=== PATIENT | male | born 1950 | race Caucasian/White ===

== ENCOUNTER 2017-02-25 06:06 | Emergency (ER) | payer OTHER ==
[2017-02-25] MEDS ORDERED: NS 1,000 ML IV ONE (06:14)
[2017-02-25] MEDS ORDERED: DIAZEPAM 10 MG/2 ML SYR IVP ONE (06:15)
[2017-02-25] MEDS ORDERED: MECLIZINE HCL 25 MG TAB PO ONE (06:15)
--- NOTE | 2017-02-25 06:18 | EDPHY ---
H & P Source: Patient, EMS HPI/ROS: HPI CHIEF COMPLAINT: Dizziness, nausea HISTORY OF PRESENT ILLNESS: This patient is 67-year-old male, he presents emergency room by ambulance for acute onset of dizziness that woke him from sleep around 4:00 a.m.. Associated nausea with this. States he is more dizzy when he opens his eyes. Denies double vision. He denies severe headache. He tells me that he gets worsening dizziness when he opens his eyes and moves his head. Not in any particular position. Denies double vision but the symptoms were acute in onset. He has never had this before. No history of cardiac disease or vascular disease. No history of stroke. Denies focal weakness numbness or tingling. Denies ringing in his ears. Past Medical History: Right bundle-branch block otherwise no other major medical problems Past Surgical History: Foot surgery Social History: Denies daily use of drugs alcohol tobacco products. Family History: Noncontributory ROS REVIEW OF SYSTEMS: A comprehensive 10 point review of systems is otherwise negative aside from elements mentioned in the history of present illness. Exam Constitutional nontoxic, triage nursing summary reviewed, vital signs reviewed , awake/alert. Eyes normal conjunctivae and sclera, EOMI, PERRLA. HENT normal inspection, atraumatic, moist mucus membranes, no epistaxis, neck supple/ no meningismus, no raccoon eyes. Respiratory clear to auscultation bilaterally, normal breath sounds, no respiratory distress, no wheezing. Cardiovascular rate normal, regular rhythm, no murmur, no edema, distal pulses normal. Gastrointestinal soft, non-tender, no rebound, no guarding, normal bowel sounds, no distension, no pulsatile mass. Genitourinary no CVA tenderness. Musculoskeletal no midline vertebral tenderness, full range of motion, no calf swelling, no tenderness of extremities, no meningismus, good pulses, neurovascularly intact. Skin pink, warm, & dry, no rash, skin atraumatic. Neurologic awake, alert and oriented x 3, AAOx3, moves all 4 extremities equally, motor intact, sensory intact, CN II-XII intact, normal cerebellar, normal vision, normal speech. Psychiatric normal mood/affect. Heme/Lymph/Immune no lymphadenopathy. Differential Diagnosis: Includes but is not limited to in a particular order benign positional vertigo, Meniere's disease,, posterior circulation stroke causing dizziness sudden onset, electrolyte disturbance, dehydration, cardiac disease Medical Decision Making: Plan for this patient IV establishment, IV fluid bolus , p.o. meclizine, 2.5 mg IV Valium, check basic blood work EKG, troponin, CT angiogram head and neck. Re-evaluation: 0625AM: EKG interpretation by me on record in [employer] system. Impression time of EKG 6:22 a.m.. Sinus rhythm 57. First-degree AV block with appear interval 240. Right bundle-branch block. Left anterior fascicular block present. Otherwise no acute ST elevation or significant ST depression. No old EKG to compare this to. Patient has a known right bundle branch block. 0640AM: Patient be signed over to Dr. Vicente at 7:00 a.m. shift change. Pending workup for acute onset of dizziness. Patient's blood work is pending at this time. CT angiogram head and neck are pending. He has been medicated. Dr. Garcia to follow up these imaging and lab results and re-evaluation and appropriate disposition. ED x-ray chest one view: Negative for acute cardiopulmonary disease. (Med[facility] Vital) Constitutional: Initial Vital Signs O2 Sat (%) 98 02/25/17 06:14 O2 Delivery Mode Room Air O2 (L/minute) 2 Allergies/Adverse Reactions: No Known Allergies Allergy (Unverified 02/25/17 06:16) Home Medications: Medication Instructions Recorded Meclizine HCl [Meclizine HCl 25 mg 25 mg PO BID PRN #14 tab 02/25/17 (RX,OTC)] Medical Decision Making - Diagnostics EKG Interpretation: EKG time is 6:22 a.m.: EKG shows a sinus rhythm with ventricular rate of 57. There is a right bundle branch block and left anterior fascicular block. 1st degree AV block also noted. Borderline biphasic T-waves in V2 and V3. I do not think this represents a Wellens syndrome. No ST, T-wave changes indicative of acute ischemic or injury pattern. Interpreted by me. (Chuy Garcia) Imaging Results: CT angiogram of the head and neck: Negative vascular study. No other significant pathology. Results were discussed with staff radiologist Dr. Haroldo Gandhi. (Chuy Garcia) ED Course/Re-evaluation: I took over care of this patient at 7:00 a.m.. The patient was signed out to me with complaint of acute onset of vertigo which woke him up. The vertigo is made worse with any head movements or body movements. The patient also complains of generalized weakness. CT angiogram of the brain and neck have been ordered and are pending at this time. The patient has been given both Valium and meclizine with some relief of his symptoms. 7:40 a.m., patient evaluated by myself. Results of his CT scans were discussed with him and his . The differential diagnosis was reviewed. He is now feeling significantly better. He reports resolution of his vertigo. He denies any chest pain. No shortness of breath. I discussed admission for observation. He does not want to do this. He feels comfortable going home and is now requesting discharge. He was able to get out of bed on his own power and ambulate without difficulty to the bathroom. Plan will be to prescribe him meclizine for suppression of benign positional vertigo. He will follow up with his primary care physician in 1-2 days for re-evaluation. I discussed consideration of possible labyrinthitis/vestibular neuritis and the need for steroids. However, at this time I will prescribe him meclizine only and if further management is required this can be done through his primary care physician. Return to emergency department precautions were discussed with the 2 of them. All of their questions were answered. He was discharged in good condition. (Chuy Garcia) - Data Points Laboratory Results: Laboratory Results 02/25/17 06:30 02/25/17 06:30 02/25/17 02/25/17 02/25/17 06:30 06:30 06:30 WBC 7.79 10^3/uL 10^3/uL (3.80-9.50) RBC 4.90 10^6/uL 10^6/uL (4.40-6.38) Hgb 14.4 g/dL g/dL (13.7-17.5) Hct 41.8 % % (40.0-51.0) MCV 85.3 fL fL (81.5-99.8) MCH 29.4 pg pg (27.9-34.1) MCHC 34.4 g/dL g/dL (32.4-36.7) RDW 13.1 % % (11.5-15.2) Plt Count 161 10^3/uL 10^3/uL (150-400) MPV 10.5 fL fL (8.7-11.7) Neut % (Auto) 85.5 % H % (39.3-74.2) Lymph % (Auto) 8.7 % L % (15.0-45.0) [place] % (Auto) 3.6 % L % (4.5-13.0) Eos % (Auto) 1.0 % % (0.6-7.6) Baso % (Auto) 0.8 % % (0.3-1.7) Nucleat RBC Rel Count 0.0 % % (0.0-0.2) Absolute Neuts (auto) 6.66 10^3/uL H 10^3/uL (1.70-6.50) Absolute Lymphs (auto) 0.68 10^3/uL L 10^3/uL (1.00-3.00) Absolute Monos (auto) 0.28 10^3/uL L 10^3/uL (0.30-0.80) Absolute Eos (auto) 0.08 10^3/uL 10^3/uL (0.03-0.40) Absolute Basos (auto) 0.06 10^3/uL 10^3/uL (0.02-0.10) Absolute Nucleated RBC 0.00 10^3/uL 10^3/uL (0-0.01) Immature Gran % 0.4 % % (0.0-1.1) Immature Gran # 0.03 10^3/uL 10^3/uL (0.00-0.10) PT 12.8 SEC SEC (12.0-15.0) INR 0.97 (0.83-1.16) APTT 22.4 SEC L SEC (23.0-38.0) Sodium 144 mEq/L mEq/L (134-144) Potassium 4.6 mEq/L mEq/L (3.5-5.2) Chloride 111 mEq/L H mEq/L (97-110) Carbon Dioxide 22 mEq/l mEq/l (22-31) Anion Gap 11 mEq/L mEq/L (8-16) BUN 23 mg/dL mg/dL (7-23) Creatinine 1.1 mg/dL mg/dL (0.7-1.3) Estimated GFR > 60 Glucose 142 mg/dL H mg/dL (70-100) Calcium 8.5 mg/dL mg/dL (8.5-10.4) Magnesium 1.9 mg/dL mg/dL (1.6-2.3) Total Bilirubin 0.7 mg/dL mg/dL (0.1-1.4) Conjugated Bilirubin 0.1 mg/dL mg/dL (0.0-0.5) Unconjugated Bilirubin 0.6 mg/dL mg/dL (0.0-1.1) AST 22 IU/L IU/L (17-59) ALT 31 IU/L IU/L (21-72) Alkaline Phosphatase 39 IU/L IU/L (38-126) Creatine Kinase 104 IU/L IU/L (0-224) CK-MB (CK-2) Fraction 1.19 ng/mL ng/mL (0-3.19) Troponin I < 0.012 ng/mL ng/mL (0-0.034) NT-Pro-B Natriuret Pep 57 pg/mL pg/mL (0-125) Total Protein 6.2 g/dL L g/dL (6.3-8.2) Albumin 3.7 g/dL g/dL (3.5-5.0) Medications Given: Discontinued Medications Diazepam (Valium Injection) 2.5 mg IVP EDNOW ONE Stop: 02/25/17 06:16 Last Admin: 02/25/17 06:32 Dose: 2.5 mg Sodium Chloride (Ns) 1,000 mls @ 0 mls/hr IV ONCE ONE; Wide Open PRN Reason: Protocol Stop: 02/25/17 06:15 Last Admin: 02/25/17 06:33 Dose: 1,000 mls Meclizine HCl (Meclizine Hcl) 25 mg PO EDNOW ONE Stop: 02/25/17 06:16 Last Admin: 02/25/17 06:32 Dose: 25 mg Departure - Departure Disposition: Home, Routine, Self-Care Clinical Impression: Vertigo Condition: Good Instructions: Vertigo (ED) Additional Instructions: Read and follow provided instructions. Follow-up with your primary care physician in 1-2 days for re-evaluation and further management as needed. Take medication as prescribed. This is meclizine. Can make you mildly drowsy. Return to the emergency department for worsening vertigo, headache, loss of sensation or weakness in your extremities, chest pain, shortness of breath or other serious concerns. Referrals: Patient,NotPresent [Unknown] - As per Instructions Prescriptions: Meclizine HCl [Meclizine HCl 25 mg (RX,OTC)] 25 mg PO BID PRN #14 tab PRN Reason: Dizziness
[2017-02-25 06:20] VITALS: RESP 18
--- NOTE | 2017-02-25 06:24 | CPEKG ---
Heart Rate: 57 RR Interval: 1053 P-R Interval: 240 QRSD Interval: 140 QT Interval: 488 QTC Interval: 476 P [place]: 0 QRS [place]amy: -71 T Wave [place]: -14 EKG Severity - ABNORMAL ECG - EKG Impression: SINUS RHYTHM EKG Impression: FIRST DEGREE AV BLOCK EKG Impression: RBBB AND LAFB Electronically Signed By: Chuy Garcia 25-Feb-2017 10:39:20
[2017-02-25 06:41] LABS: % IMMATURE GRANULYOCYTES 0.4 % (0.0-1.1); ABSOLUTE IMMATURE GRANULOCYTES 0.03 10^3/uL (0.00-0.10); ADD DIFF? NO; ADD MORPH? NO; ADD SCAN? NO; ATYPICAL LYMPHOCYTE FLAG 0 (0-99); FRAGMENT RBC FLAG 0 (0-99); HEMATOCRIT 41.8 % (40.0-51.0); HEMOGLOBIN 14.4 g/dL (13.7-17.5); LEFT SHIFT FLG 0 (0-99); LIPEMIA HEMOLYSIS FLAG 90 (0-99); MEAN CELL HEMOGLOBIN 29.4 pg (27.9-34.1); MEAN CELL HEMOGLOBIN CONCENTR. 34.4 g/dL (32.4-36.7); MEAN CELL VOLUME 85.3 fL (81.5-99.8); MEAN PLATELET VOLUME 10.5 fL (8.7-11.7); PLATELET CLUMPS FLAG 0 (0-99); PLATELET COUNT 161 10^3/uL (150-400); RED CELL DISTRIBUTION WIDTH 13.1 % (11.5-15.2)
[2017-02-25] MEDS ORDERED: IOPAMIDOL (ISOVUE 370) 100 ML BTL IV ONE (06:43)
[2017-02-25 06:51] LABS: ALANINE AMINOTRANSFERASE 31 IU/L (21-72); ALBUMIN 3.7 g/dL (3.5-5.0); ALKALINE PHOSPHATASE 39 IU/L (38-126); ANION GAP 11 mEq/L (8-16); ASPARTATE AMINOTRANSFERASE 22 IU/L (17-59); BILIRUBIN,TOTAL 0.7 mg/dL (0.1-1.4); BILIRUBIN-CONJUGATED 0.1 mg/dL (0.0-0.5); BILIRUBIN-UNCONJUGATED 0.6 mg/dL (0.0-1.1); CALCIUM 8.5 mg/dL (8.5-10.4); CARBON DIOXIDE 22 mEq/l (22-31); CHLORIDE 111 mEq/L (97-110); CREATININE 1.1 mg/dL (0.7-1.3); GLOMERULAR FILTRATION RATE > 60; GLUCOSE 142 mg/dL (70-100); MAGNESIUM 1.9 mg/dL (1.6-2.3); POTASSIUM 4.6 mEq/L (3.5-5.2); SODIUM 144 mEq/L (134-144); TOTAL PROTEIN 6.2 g/dL (6.3-8.2)
[2017-02-25 07:03] LABS: CREATINE KINASE-MB FRACTION 1.19 ng/mL (0-3.19); TROPONIN I < 0.012 ng/mL (0-0.034)
[2017-02-25 07:28] LABS: INR 0.97 (0.83-1.16); PROTIME(PATIENT) 12.8 SEC (12.0-15.0)
[2017-02-25 07:29] LABS: APTT 22.4 SEC (23.0-38.0)
[2017-02-25 08:24] VITALS: BP 123/88; PULSE 68; TEMP 98.4; O2SAT 97
== END 2017-02-25 08:20 | disposition home or self-care (01) ==
LOC: EDUNIT#
DX: R42 Dizziness and giddiness (principal); E86.9 Volume depletion, unspecified
CPT/HCPCS: 70450; 70496; 70498; 71010; 93005; 96361; 96374; 99285; Q9967

== ENCOUNTER 2017-07-09 04:25 | Emergency (ER) | payer OTHER ==
[2017-07-09] MEDS ORDERED: NS 1,000 ML IV ONE (04:28)
[2017-07-09 04:35] VITALS: TEMP 98.1
[2017-07-09 04:39] LABS: % IMMATURE GRANULYOCYTES 0.2 % (0.0-1.1); ABSOLUTE IMMATURE GRANULOCYTES 0.02 10^3/uL (0.00-0.10); ADD DIFF? NO; ADD MORPH? NO; ADD SCAN? NO; ATYPICAL LYMPHOCYTE FLAG 0 (0-99); FRAGMENT RBC FLAG 0 (0-99); LEFT SHIFT FLG 0 (0-99); LIPEMIA HEMOLYSIS FLAG 90 (0-99); MEAN CELL HEMOGLOBIN 30.2 pg (27.9-34.1); MEAN CELL VOLUME 88.8 fL (81.5-99.8); PLATELET CLUMPS FLAG 10 (0-99); PLATELET COUNT 269 10^3/uL (150-400); RED BLOOD CELL COUNT 5.29 10^6/uL (4.40-6.38); RED CELL DISTRIBUTION WIDTH 13.1 % (11.5-15.2)
--- NOTE | 2017-07-09 04:48 | EDPHY ---
H & P Stated Complaint: possible seizure HPI/ROS: HPI The patient presents with concern for seizure, brought in by ambulance. The patient was sleeping in bed with his . She awoke because she heard him making gurgling sorts of noises and then noticed that he had shaking of his arms and legs and was unconscious. She tried to get his attention but was unable to. Then, he stop shaking and began taking deep respirations. He was very tired and confused. 911 was called. When paramedics arrived, the patient was confused and combative, requiring handcuffs to transport him down his stairs. He became more awake and alert throughout his transport. Room air saturation was initially 84% and he was placed on supplemental O2. He was complaining of nausea so received a dose of Zofran. He has no prior history of seizures or similar episodes. He is not taking any new medications, took Claritin, 1 dose several days ago. He had a normal day yesterday and was feeling fine, went to work and exercise. He denies any head injury. He has not had any vomiting, fever, URI type symptoms. He has no history of heavy alcohol use. In February of this year he was seen for an episode of vertigo which occurred while he was lying in bed. This was fairly severe, though resolved while he was in the emergency department. He had CT scan of his head and neck with CTA performed. His testing was unremarkable. He has had 1 subsequent mild episode of vertigo improved with meclizine.. REVIEW OF SYSTEMS Constitutional: No fever, no chills. Eyes: No discharge. ENT: No sore throat. Cardiovascular: No chest pain, no palpitations. Respiratory: No cough, no shortness of breath. Gastrointestinal: No abdominal pain, no vomiting. Genitourinary: No hematuria. Musculoskeletal: No back pain. Skin: No rashes. Neurological: No headache. PMHx: Right bundle-branch block, history of vertigo Soc Hx: Lives at home with his , occasional alcohol use, currently working PHYSICAL General Appearance: Alert, no distress Eyes: Pupils equal and round no pallor or injection ENT, Mouth: Mucous membranes moist, there is ecchymoses and edema to his left tongue Respiratory: There are no retractions, lungs are clear to auscultation Cardiovascular: Regular rate and rhythm Gastrointestinal: Abdomen is soft and non-tender, no masses, bowel sounds normal Neurological: A&O, moves all extremities Skin: Warm and dry, no rashes Musculoskeletal: Neck is supple non tender Extremities: symmetrical, full range of motion Psychiatric: Patient is oriented X 3, there is no agitation Source: Patient, Family Exam Limitations: Clinical condition - Personal History Current Tetanus/Diphtheria Vaccine: Unsure Current Tetanus Diphtheria and Acellular Pertussis (TDAP): Unsure - Medical/Surgical History Hx Asthma: No Hx Chronic Respiratory Disease: No Hx Diabetes: No Hx Cardiac Disease: No Hx Renal Disease: No Hx Cirrhosis: No Hx Alcoholism: No Hx HIV/AIDS: No Hx Splenectomy or Spleen Trauma: No Other PMH: RBBB - Social History Smoking Status: Never smoked Constitutional: Initial Vital Signs Temperature (C) 36.7 C 07/09/17 04:33 Heart Rate 76 07/09/17 04:33 Respiratory Rate 15 07/09/17 04:33 Blood Pressure 113/71 07/09/17 04:33 O2 Sat (%) 93 07/09/17 04:33 O2 Delivery Mode Room Air Allergies/Adverse Reactions: No Known Allergies Allergy (Verified 07/09/17 04:35) Home Medications: Medication Instructions Recorded NK [No Known Home Meds] 07/09/17 Medical Decision Making - Diagnostics EKG Interpretation: EKG: Complete interpretation has been separately recorded in the [employer] archive. Summary impression: Normal sinus rhythm with right bundle branch block Imaging: Discussed imaging studies w/ body recall instructor Radiologist Differential Diagnosis: This is a 67-year-old male, healthy with 1 ER visit for vertigo several months ago, who presents brought in by ambulance after episode of ALOC which occurred with tonic clonic activity. He seems to have a resolving mental status and may be postictal. I suspect new onset seizure. Other possibilities include myoclonus, electrolyte disturbance. The cause of his seizure is unclear at this point based on his history. It is somewhat concerning that he has had an episode of vertigo, though he had normal imaging at that time. He could have a mass, verses electrolyte disturbance. In the emergency department, patient was monitored for several hours and became more awake and alert. He did not have any ongoing seizure activity. EKG, CT scan of head were all unremarkable. Labs did reveal a lactic acidosis which I suspect is related to his seizure. I doubt sepsis given no fever, tachycardia, hypotension, symptoms to suggest infection. He was given a fluid bolus. He was able to walk without difficulty and tolerate p. o.. He will be discharged home. I have advised him that he cannot drive a car or operate heavy machinery. He is to follow up with Neurology and I have given him information for this. He is to return if he has any ongoing seizure. Given that this is 1st onset seizure I will not start him on any antiepileptic drugs. - Data Points Laboratory Results: Laboratory Results 07/09/17 04:30 07/09/17 04:30 07/09/17 07/09/17 07/09/17 05:26 04:30 04:30 WBC 8.75 10^3/uL 10^3/uL (3.80-9.50) RBC 5.29 10^6/uL 10^6/uL (4.40-6.38) Hgb 16.0 g/dL g/dL (13.7-17.5) Hct 47.0 % % (40.0-51.0) MCV 88.8 fL fL (81.5-99.8) MCH 30.2 pg pg (27.9-34.1) MCHC 34.0 g/dL g/dL (32.4-36.7) RDW 13.1 % % (11.5-15.2) Plt Count 269 10^3/uL 10^3/uL (150-400) MPV 11.0 fL fL (8.7-11.7) Neut % (Auto) 53.8 % % (39.3-74.2) Lymph % (Auto) 32.6 % % (15.0-45.0) [place] % (Auto) 6.9 % % (4.5-13.0) Eos % (Auto) 4.8 % % (0.6-7.6) Baso % (Auto) 1.7 % % (0.3-1.7) Nucleat RBC Rel Count 0.0 % % (0.0-0.2) Absolute Neuts (auto) 4.71 10^3/uL 10^3/uL (1.70-6.50) Absolute Lymphs (auto) 2.85 10^3/uL 10^3/uL (1.00-3.00) Absolute Monos (auto) 0.60 10^3/uL 10^3/uL (0.30-0.80) Absolute Eos (auto) 0.42 10^3/uL H 10^3/uL (0.03-0.40) Absolute Basos (auto) 0.15 10^3/uL H 10^3/uL (0.02-0.10) Absolute Nucleated RBC 0.00 10^3/uL 10^3/uL (0-0.01) Immature Gran % 0.2 % % (0.0-1.1) Immature Gran # 0.02 10^3/uL 10^3/uL (0.00-0.10) VBG Lactic Acid 2.5 mmol/L H mmol/L (0.7-2.1) Sodium 143 mEq/L mEq/L (134-144) Potassium 5.0 mEq/L mEq/L (3.5-5.2) Chloride 104 mEq/L mEq/L (97-110) Carbon Dioxide 12 mEq/l L mEq/l (22-31) Anion Gap 27 mEq/L H mEq/L (8-16) BUN 19 mg/dL mg/dL (7-23) Creatinine 1.3 mg/dL mg/dL (0.7-1.3) Estimated GFR 55 Glucose 144 mg/dL H mg/dL (70-100) Calcium 9.3 mg/dL mg/dL (8.5-10.4) Phosphorus 4.9 mg/dL H mg/dL (2.5-4.5) Magnesium 2.3 mg/dL mg/dL (1.6-2.3) Troponin I < 0.012 ng/mL ng/mL (0.000-0.034) Medications Given: Discontinued Medications Sodium Chloride (Ns) 1,000 mls @ 0 mls/hr IV ONCE ONE; Wide Open PRN Reason: Protocol Stop: 07/09/17 04:29 Last Admin: 07/09/17 04:40 Dose: 1,000 mls Departure - Departure Disposition: Home, Routine, Self-Care Clinical Impression: Seizure Condition: Good Instructions: New-Onset Seizure in Adults (ED) Additional Instructions: Please return to the emergency department if you have another seizure. Otherwise you should follow up with a neurologist. You can call your primary care doctor to get a referral, otherwise I have also referred you to our local neurologist. Please follow-up with your primary care doctor if your feeling worse in any way or return to the emergency department for recheck. Referrals: James Grant MD [Medical Doctor] - As per Instructions
[2017-07-09 04:51] LABS: ANION GAP 27 mEq/L (8-16); CALCIUM 9.3 mg/dL (8.5-10.4); CARBON DIOXIDE 12 mEq/l (22-31); CHLORIDE 104 mEq/L (97-110); CREATININE 1.3 mg/dL (0.7-1.3); GLOMERULAR FILTRATION RATE 55; GLUCOSE 144 mg/dL (70-100); MAGNESIUM 2.3 mg/dL (1.6-2.3); SODIUM 143 mEq/L (134-144)
--- NOTE | 2017-07-09 05:00 | CPEKG ---
Heart Rate: 71 RR Interval: 845 P-R Interval: 212 QRSD Interval: 132 QT Interval: 432 QTC Interval: 470 P [place]: 14 QRS [place]: -78 T Wave [place]: 14 EKG Severity - ABNORMAL ECG - EKG Impression: SINUS RHYTHM EKG Impression: RBBB AND LAFB Electronically Signed By: Le Neff 09-Jul-2017 23:09:00
[2017-07-09 05:03] LABS: TROPONIN I < 0.012 ng/mL (0.000-0.034)
[2017-07-09 06:09] VITALS: BP 113/78; PULSE 72; RESP 14; O2SAT 92
== END 2017-07-09 06:55 | disposition home or self-care (01) ==
LOC: EDUNIT#
DX: R56.9 Unspecified convulsions (principal); E86.9 Volume depletion, unspecified

== ENCOUNTER 2017-11-19 08:11 | Emergency (ER) | payer OTHER ==
--- NOTE | 2017-11-19 08:14 | EDPHY ---
H & P Time Seen by Provider: 11/19/17 08:14 HPI/ROS: CHIEF COMPLAINT: Seizure HISTORY OF PRESENT ILLNESS: Patient was previously seen in our emergency department on 07/09/2017, chart personally reviewed. At that time had a tonic- clonic seizure and a negative head CT and was referred to Neurology. He had an MRI and EEG by Neurology at [facility] in [place], tells me those were normal, is not currently on any medications. Occasional alcohol but not daily. No recent illnesses. The patient arrives this morning by EMS. Apparently he was at home standing by the sink when his noted him start to have left arm shaking followed by full body tonic-clonic seizure activity which was reported as lasting 5 min. She was able to help down to the floor and he did not sustain any other injury or trauma, was confused and postictal on EMS arrival, on arrival was oriented x1. Normal glucose, sinus rhythm. REVIEW OF SYSTEMS: Eye: no change in vision or below vision ENT: no sore throat Cardiac: No chest pain Pulmonary: no cough or SOB Abdomen: no vomiting, diarrhea, abdominal pain Musculoskeletal: no back pain or neck pain Skin: no rash Neuro: Mild headache Constitutional: no fever : no urinary symptoms A comprehensive 10 point review of systems is otherwise negative aside from elements mentioned in the history of present illness. PAST MEDICAL HISTORY: Right bundle branch block, vertigo, seizure disorder as above. Social history: , no alcohol, no drugs General Appearance: Alert and conversant, cooperative. Eyes: No scleral icterus. Pupils equal and reactive extraocular motion intact. ENT, Mouth: Right sided tongue abrasion. No external evidence of head trauma. Respiratory: Normal respiratory effort, breath sounds equal, lungs are clear to auscultation. Cardiovascular: Regular rate and rhythm. Gastrointestinal: Abdomen is soft and non tender. Neurological: Alert, face symmetric, normal motor and sensory in extremities. Not tremulous, oriented to person and place but amnestic to events. Skin: Warm and dry, no rashes. Musculoskeletal: No cervical thoracic or lumbar spine tenderness. No extremity tenderness. Psychiatric: Not agitated. Emergency Department course/MDM: EKG, CBC chemistry and troponin. Seizure disorder much more likely than dysrhythmia or cardiac syncope. Consultation with his neurologist in [place]. 837: Dr. Zuniga from [facility]. Recommends IV Keppra load and 500 mg p. O. Twice daily, discharge with office follow-up. Recommendations and Keppra discussed and consented with the patient and his . 1015: Ambulatory, not ataxic, oral Tylenol for headache. Smoking Status: Never smoked Constitutional: Initial Vital Signs Temperature (C) 36.6 C 11/19/17 08:16 Heart Rate 73 11/19/17 08:16 Respiratory Rate 16 11/19/17 08:16 Blood Pressure 121/77 H 11/19/17 08:16 O2 Sat (%) 95 11/19/17 08:16 O2 Delivery Mode Room Air Allergies/Adverse Reactions: No Known Allergies Allergy (Verified 07/09/17 04:35) Home Medications: Medication Instructions Recorded levETIRAcetam [Keppra 500 mg (*)] 500 mg PO BID #14 tab 11/19/17 Medical Decision Making - Diagnostics EKG Interpretation: 12-lead EKG interpreted by me; official reading is in trace master. My interpretation is sinus rhythm with right bundle branch block and left anterior fascicular block 71, unchanged from July 092016. Differential Diagnosis: Differential diagnosis considered for a seizure including but not limited to electrolyte abnormality, alcohol withdrawal, medication noncompliance, head injury, and breakthrough seizure. - Data Points Laboratory Results: Laboratory Results 11/19/17 08:10 11/19/17 08:10 11/19/17 11/19/17 08:10 08:10 WBC 8.23 10^3/uL 10^3/uL (3.80-9.50) RBC 5.55 10^6/uL 10^6/uL (4.40-6.38) Hgb 16.3 g/dL g/dL (13.7-17.5) Hct 49.7 % % (40.0-51.0) MCV 89.5 fL fL (81.5-99.8) MCH 29.4 pg pg (27.9-34.1) MCHC 32.8 g/dL g/dL (32.4-36.7) RDW 13.2 % % (11.5-15.2) Plt Count 290 10^3/uL 10^3/uL (150-400) MPV 10.7 fL fL (8.7-11.7) Neut % (Auto) 63.7 % % (39.3-74.2) Lymph % (Auto) 28.6 % % (15.0-45.0) [place] % (Auto) 5.5 % % (4.5-13.0) Eos % (Auto) 0.5 % L % (0.6-7.6) Baso % (Auto) 1.3 % % (0.3-1.7) Nucleat RBC Rel Count 0.0 % % (0.0-0.2) Absolute Neuts (auto) 5.25 10^3/uL 10^3/uL (1.70-6.50) Absolute Lymphs (auto) 2.35 10^3/uL 10^3/uL (1.00-3.00) Absolute Monos (auto) 0.45 10^3/uL 10^3/uL (0.30-0.80) Absolute Eos (auto) 0.04 10^3/uL 10^3/uL (0.03-0.40) Absolute Basos (auto) 0.11 10^3/uL H 10^3/uL (0.02-0.10) Absolute Nucleated RBC 0.00 10^3/uL 10^3/uL (0-0.01) Immature Gran % 0.4 % % (0.0-1.1) Immature Gran # 0.03 10^3/uL 10^3/uL (0.00-0.10) Sodium 143 mEq/L mEq/L (135-145) Potassium 5.1 mEq/L mEq/L (3.5-5.2) Chloride 103 mEq/L mEq/L (97-110) Carbon Dioxide 13 mEq/l L mEq/l (22-31) Anion Gap 27 mEq/L H mEq/L (8-16) BUN 21 mg/dL mg/dL (7-23) Creatinine 1.3 mg/dL mg/dL (0.7-1.3) Estimated GFR 55 Glucose 145 mg/dL H mg/dL (70-100) Calcium 9.6 mg/dL mg/dL (8.5-10.4) Troponin I < 0.012 ng/mL ng/mL (0.000-0.034) Medications Given: Discontinued Medications Acetaminophen (Tylenol) 650 mg PO EDNOW ONE Stop: 11/19/17 10:18 Last Admin: 11/19/17 10:21 Dose: 650 mg Levetiracetam (Keppra (Premix)) 100 mls @ 400 mls/hr IV EDNOW ONE Stop: 11/19/17 09:18 Last Admin: 11/19/17 09:34 Dose: 100 mls Departure - Departure Disposition: Home, Routine, Self-Care Clinical Impression: Seizure disorder Condition: Good Instructions: Levetiracetam (By mouth) Additional Instructions: No driving, no swimming or power equipment, no climbing ladders or other potentially dangerous activities until cleared to full activity by your neurologist Referrals: MATTEO ZUNIGA [Medical Doctor] - 1-2 days without fail Prescriptions: levETIRAcetam [Keppra 500 mg (*)] 500 mg PO BID #14 tab
[2017-11-19 08:22] LABS: PLATELET COUNT 290 10^3/uL (150-400)
--- NOTE | 2017-11-19 08:24 | CPEKG ---
Heart Rate: 71 RR Interval: 845 P-R Interval: 204 QRSD Interval: 132 QT Interval: 416 QTC Interval: 453 P [place]: 19 QRS [place]: -79 T Wave [place]: 10 EKG Severity - ABNORMAL ECG - EKG Impression: SINUS RHYTHM EKG Impression: RBBB AND LAFB Electronically Signed By: Yobany Soto 19-Nov-2017 08:25:16
[2017-11-19] MEDS ORDERED: levETIRAcetam 1000MG/NACL 100 ML IV ONE (09:04)
[2017-11-19] MEDS ORDERED: ACETAMINOPHEN 325 MG TAB ONE (10:17)
[2017-11-19] MEDS ORDERED: ACETAMINOPHEN 325 MG TAB PO ONE (10:17)
[2017-11-19 10:26] VITALS: BP 117/77
== END 2017-11-19 10:31 | disposition home or self-care (01) ==
LOC: EDUNIT#
DX: G40.909 Epilepsy, unspecified, not intractable, without status epilepticus (principal)
CPT/HCPCS: 96374; J1953

== ENCOUNTER 2018-12-23 12:58 | Emergency (ER) | payer OTHER ==
--- NOTE | 2018-12-23 13:52 | EDPHY ---
H & P Time Seen by Provider: 12/23/18 13:09 HPI/ROS: Chief complaint. Something stuck in my throat HPI. 6-year-old male presents emergency department with granola stuck in throat. He was eating granola in yogurt for lunch in a got stuck in his throat. It felt that it was behind his breast bone. He was breathing okay but could not swallow completely. He has a history of an esophageal dilation 10 years ago. Patient tried water and coughing and gagging to get it cleared. However as the patient has just arrived in the ER it now has cleared and he feels that he is swallowing normally. He no longer has any sore throat, chest pain, shortness of breath. ROS 10 systems were reviewed and negative with the exception of the elements mentioned in the history of present illness Past Medical/Surgical History: Esophageal dilation, right bundle branch block, seizure disorder Social History: , nonsmoker, no alcohol Smoking Status: Never smoked Physical Exam: General Appearance: Alert pleasant well-developed male mild distress. Vital signs are stable Eyes: Pupils equal and round no pallor or injection. ENT, pharyngeal exam shows no erythema and no evidence of foreign body Respiratory: There are no retractions, lungs are clear to auscultation. Cardiovascular: Regular rate and rhythm. Gastrointestinal: Abdomen is soft and nontender, no masses, bowel sounds normal. Neurological: Awake and alert, sensory and motor exams grossly normal. Skin: Warm and dry, no rashes. Musculoskeletal: Neck is supple nontender. Extremities symmetrical, full range of motion. Psychiatric: Patient is oriented X 3, there is no agitation. Constitutional: Initial Vital Signs Temperature (C) 36.9 C 12/23/18 12:59 Heart Rate 66 12/23/18 12:59 Respiratory Rate 18 12/23/18 12:59 Blood Pressure 170/88 H 12/23/18 12:59 O2 Sat (%) 93 12/23/18 12:59 O2 Delivery Mode Room Air Allergies/Adverse Reactions: No Known Allergies Allergy (Verified 07/09/17 04:35) Home Medications: Medication Instructions Recorded levETIRAcetam [Keppra 500 mg (*)] 500 mg PO BID #14 tab 11/19/17 Medical Decision Making ED Course/Re-evaluation: Serial exams and the patient no longer has any symptoms of esophageal obstruction. He feels that it has cleared. He does not have a local sheet metal former. I consulted discussed case with Dr. Santos who will see the patient in the office Differential Diagnosis: esophageal fb in a patient with hx of esophageal striture and previous dilation. No airway compromise. Departure - Departure Disposition: Home, Routine, Self-Care Clinical Impression: Esophageal foreign body Qualifiers: Encounter type: initial encounter Qualified Code(s): T18.108A - Unspecified foreign body in esophagus causing other injury, initial encounter Condition: Good Instructions: Esophageal Foreign Body (ED), Esophageal Dilation (DC) Additional Instructions: Return for worsening symptoms Call Dr. Santos to arrange follow-up evaluation and likely dilation Referrals: Damien Santos MD [Medical Doctor] - 2-3 days, call for appt.
[2018-12-23 14:17] VITALS: BP 144/78
== END 2018-12-23 14:00 | disposition home or self-care (01) ==
DX: T18.108A Unspecified foreign body in esophagus causing other injury, initial encounter (principal)